=== PATIENT | male | born 1945 | race Caucasian/White ===

== ENCOUNTER 2018-04-16 10:43 | Day surgery (SDC) | payer MEDICARE, BC ==
[~2018-04-16] VITALS: Ht 177.8 cm; Wt 68.4 kg
[~2018-04-16 10:43] MED LIST: ADVIL 200MG TA200 MG PO; AVODART 0.5MG0.5 MG PO; FLOMAX; FLOMAX 0.40.4 MG/CAP PO; OMNICEF 300MG300 MG PO; PREDNISONE20 MG PO; PROBIOTIC FORMU1 CAP PO
[2018-04-16 11:23] VITALS: BP 152/62; PULSE 62; TEMP 97.3
[2018-04-16] MEDS ORDERED: PROBIOTIC FORMU1 CAP PO (11:30)
[2018-04-16] MEDS ORDERED: PROSCAR 5MG5 MG PO (11:30)
[2018-04-16] MEDS ORDERED: ALEVE 220MG220 MG PO (11:30)
[2018-04-16 14:35] VITALS: BP 126/65; PULSE 61; TEMP 98.1
[2018-04-16] MEDS ORDERED: ULTRAM 50MG TAB50 MG PO (14:49)
[2018-04-16 14:50] VITALS: BP 117/61; PULSE 63
[2018-04-16 15:05] VITALS: BP 125/64; PULSE 60
[2018-04-16 15:20] VITALS: BP 115/53; PULSE 54
[2018-04-16 15:45] VITALS: BP 137/63; PULSE 67
== END 2018-04-16 16:40 | disposition home or self-care (01) ==
LOC: SDCO 10:43
DX: K40.90 Unilateral inguinal hernia, without obstruction or gangrene, not specified as recurrent (principal); G70.00 Myasthenia gravis without (acute) exacerbation; K21.9 Gastro-esophageal reflux disease without esophagitis; Z79.899 Other long term (current) drug therapy; J44.9 Chronic obstructive pulmonary disease, unspecified; F17.210 Nicotine dependence, cigarettes, uncomplicated; M54.32 Sciatica, left side; M54.31 Sciatica, right side; N40.0 Benign prostatic hyperplasia without lower urinary tract symptoms
CPT/HCPCS: C1781; J1885; J2405; J2704; J3010; J7120

== ENCOUNTER 2018-09-15 08:46 | Emergency (ER) | payer MEDICARE, BC ==
[~2018-09-15] VITALS: Ht 177.8 cm; Wt 65.1 kg
[~2018-09-15 08:46] MED LIST changes: +ALEVE 220MG220 MG PO; +PROSCAR 5MG5 MG PO; +ULTRAM 50MG TAB50 MG PO
[2018-09-15 08:49] VITALS: TEMP 97.4
[2018-09-15 10:10] VITALS: BP 130/75; PULSE 82
== END 2018-09-15 10:10 | disposition home or self-care (01) ==
LOC: COL.ER 08:46
DX: H61.23 Impacted cerumen, bilateral (principal); F17.210 Nicotine dependence, cigarettes, uncomplicated; Z98.890 Other specified postprocedural states; Z90.89 Acquired absence of other organs

== ENCOUNTER → 2018-09-20 | Outpatient (CLI) | payer MEDICARE, BC | LOC: COL.RAD 13:31 | DX: M51.16 Intervertebral disc disorders with radiculopathy, lumbar region (principal) ==

== ENCOUNTER → 2021-06-04 | Outpatient (CLI) | payer MEDICARE, BC | LOC: COL.RAD 13:05 | DX: N28.1 Cyst of kidney, acquired (principal); N20.0 Calculus of kidney; N32.89 Other specified disorders of bladder; K80.20 Calculus of gallbladder without cholecystitis without obstruction; N40.1 Benign prostatic hyperplasia with lower urinary tract symptoms | CPT/HCPCS: Q9967 ==

== ENCOUNTER 2023-11-12 14:42 | Emergency (ER) | payer MEDICARE, BC ==
[~2023-11-12] VITALS: Ht 177.8 cm; Wt 69.5 kg
[2023-11-12 14:52] VITALS: TEMP 97.7
[2023-11-12 16:42] LABS: BASO # 0.1 K/mm3 (0.0-0.2); BASO % 0.9 % (0.0-2.0); EOS # 0.2 K/mm3 (0.0-0.7); EOS % 2.7 % (0.0-4.0); GRAN # 5.4 K/mm3 (1.4-6.5); GRAN % 61.9 % (42.2-75.2); HEMATOCRIT 46.2 % (42.0-52.0); HEMOGLOBIN 15.6 g/dl (13.5-18.0); LYMPH # 2.3 K/mm3 (1.2-3.4); LYMPH % 26.3 % (20.0-51.0); MEAN CELL VOLUME 88 fl (80.0-100.0); MEAN CORPUSCULAR HEMOGLOBIN 30 pg (27-31); MEAN CORPUSCULAR HGB CONC 34 g/dl (33.0-37.0); MEAN PLATELET VOLUME 9.7 fl (7.4-10.4); MONO # 0.7 K/mm3 (0.1-0.6); MONO % 7.5 % (1.7-9.3); PLATELET COUNT 232 K/mm3 (130-400); RED BLOOD COUNT 5.23 M/mm3 (4.20-5.60); REDCELL DISTRIBUTION WIDTH-CV 13.7 % (11.5-14.5)
[2023-11-12 16:57] LABS: ALANINE AMINOTRANSFERASE 34 U/L (0-55); ALBUMIN 3.6 g/dL (3.4-4.8); ALKALINE PHOSPHATASE 108 U/L (40-150); ANION GAP 11 mmol/L (7-16); AST,SGOT 31 U/L (5-34); BILIRUBIN,TOTAL 0.3 mg/dL (0.2-1.2); BLOOD UREA NITROGEN 18 mg/dL (8-26); CALCIUM 9.4 mg/dL (8.4-10.2); CHLORIDE 106 mEq/L (98-107); CREATININE, serum 0.88 mg/dL (0.72-1.25); GLUCOSE 103 mg/dL (70-99); POTASSIUM 4.2 mEq/L (3.5-4.5); SODIUM 140 mEq/L (136-145); TOTAL PROTEIN 7.2 g/dl (6.2-8.1)
[2023-11-12] MEDS ORDERED: Ondansetron 4 MG/2 ML VIAL IV ONE (17:00)
[2023-11-12] MEDS ORDERED: Morphine 4 MG/ML VIAL IV ONE (17:00)
[2023-11-12] MEDS ORDERED: NS 1,000 ML IV ONE (17:00)
[2023-11-12 17:07] LABS: TROPONIN-I < 0.010 ng/mL (0.00-0.033)
[2023-11-12 17:23] LABS: PH 6.5 (5.0-8.5); URINE APPEARANCE CLEAR (CLEAR/HAZY); URINE BLOOD NEGATIVE (NEGATIVE); URINE COLOR YELLOW (YELLOW); URINE GLUCOSE NEGATIVE (NEGATIVE); URINE KETONE NEGATIVE (NEGATIVE); URINE NITRATE NEGATIVE (NEGATIVE); URINE PROTEIN(semi-quant) NEGATIVE (NEGATIVE); URINE UROBILINOGEN 0.2 E.U/dL (0.2-1.0)
[2023-11-12] MEDS ORDERED: Ketorolac 15 MG/ML VIAL IV ONE (17:30)
[2023-11-12] MEDS ORDERED: NS 50 ML IV ONE (18:19)
[2023-11-12] MEDS ORDERED: Iohexol 300 - 100 ML VIAL IV ONE (18:19)
[2023-11-12 19:04] LABS: COLLECTION METHOD CLEAN CATCH
[2023-11-12] MEDS ORDERED: NORCO 325 MG-51 TAB PO (19:13)
[2023-11-12] MEDS ORDERED: Home HYDROcodone/Acetaminophen 5/325 MG #4 TABS/PACK PO ONE (19:15)
[2023-11-12 19:26] VITALS: BP 136/80; PULSE 80
== END 2023-11-12 19:26 | disposition home or self-care (01) ==
LOC: COL.ER 14:42
PROVIDERS: Nurse Practitioner
DX: R10.11 Right upper quadrant pain (principal); R10.31 Right lower quadrant pain; R16.0 Hepatomegaly, not elsewhere classified; J40 Bronchitis, not specified as acute or chronic
CPT/HCPCS: J1885; J2405; J7030; Q9967

== ENCOUNTER 2023-12-03 15:22 | Emergency (ER) | payer MEDICARE, BC ==
[~2023-12-03] VITALS: Ht 177.8 cm; Wt 68.2 kg
[~2023-12-03 15:22] MED LIST changes: +NORCO 325 MG-51 TAB PO
[2023-12-03 15:55] VITALS: TEMP 97.9
[2023-12-03] MEDS ORDERED: Ondansetron 4 MG/2 ML VIAL IV ONE (19:15)
[2023-12-03] MEDS ORDERED: HYDROmorphone 0.5 MG/0.5 ML SYRINGE IV ONE ×2 (19:15→20:15)
[2023-12-03 19:53] LABS: BASO # 0.1 K/mm3 (0.0-0.2); BASO % 0.8 % (0.0-2.0); EOS # 0.1 K/mm3 (0.0-0.7); GRAN # 6.5 K/mm3 (1.4-6.5); GRAN % 71.4 % (42.2-75.2); HEMOGLOBIN 16.4 g/dl (13.5-18.0); LYMPH # 1.7 K/mm3 (1.2-3.4); LYMPH % 18.2 % (20.0-51.0); MEAN CELL VOLUME 87 fl (80.0-100.0); MEAN CORPUSCULAR HEMOGLOBIN 30 pg (27-31); MEAN CORPUSCULAR HGB CONC 34 g/dl (33.0-37.0); MEAN PLATELET VOLUME 10.1 fl (7.4-10.4); MONO # 0.8 K/mm3 (0.1-0.6); MONO % 8.3 % (1.7-9.3); PLATELET COUNT 227 K/mm3 (130-400); RED BLOOD COUNT 5.53 M/mm3 (4.20-5.60); REDCELL DISTRIBUTION WIDTH-CV 13.7 % (11.5-14.5)
[2023-12-03] MEDS ORDERED: Home oxyCODONE/Acetaminophen 5/325 MG #4 TAB/PACK PO ONE (20:15)
[2023-12-03 20:16] LABS: ALBUMIN 3.9 g/dL (3.4-4.8); BILIRUBIN,TOTAL 0.8 mg/dL (0.2-1.2); CALCIUM 9.5 mg/dL (8.4-10.2); CREATININE, serum 0.8 mg/dL (0.72-1.25); POTASSIUM 4.4 mEq/L (3.5-4.5); TOTAL PROTEIN 8.2 g/dl (6.2-8.1)
[2023-12-03] MEDS ORDERED: PERCOCET 325 MG1 TA2 PO (20:16)
[2023-12-03] MEDS ORDERED: ZOFRAN ODT4 MG PO (20:48)
[2023-12-03 21:10] VITALS: BP 136/88; PULSE 87
== END 2023-12-03 21:10 | disposition home or self-care (01) ==
LOC: COL.ER 15:22
PROVIDERS: Physician Assistant
DX: C79.51 Secondary malignant neoplasm of bone (principal)
CPT/HCPCS: J1170; J2405

== ENCOUNTER 2023-12-06 11:26 | Inpatient (IN) | payer MEDICARE, BC ==
[~2023-12-06] VITALS: Ht 177.8 cm; Wt 63.4 kg
[~2023-12-06 11:26] MED LIST changes: +PERCOCET 325 MG1 TA2 PO; +ZOFRAN ODT4 MG PO
[2023-12-06] MEDS ORDERED: fentaNYL 25 MCG 72 HR PATCH TD ONE (12:00)
[2023-12-06 13:00] VITALS: BP_SYST 128
[2023-12-06] MEDS ORDERED: FENTANYL 25 MCG TD (13:30)
[2023-12-06] MEDS ORDERED: NORVASC 10MG10 MG PO (14:19)
[2023-12-06] MEDS ORDERED: COZAAR 25MG25 MG/TAB PO (14:19)
--- NOTE | 2023-12-06 14:34 | NUR ---
SW consulted for resources for caregiving. SW reviewed chart, spoke with MAXINE Tyler who reports patient was sent via EMS to ER for pain management. Discussed options of home health vs respite care vs admission. SW called [facility] and [facility] to inquire about possible respite care. CHELSIE quotedx $304-$330 per day respite rate with a minimum 7 day committment. [facility] quoted $414 per day. SW met with patient and son Viraj ([phone]) to discuss options for patient care. Patient experiencing severe pain with minimal movement in bed. Patient is hard of hearing but did participate in coversation. Son Viraj shared that patient lives alone in [place] , sees Dr. Mccain as his PCP and uses [facility]. Patient shared that he lives in a split level house with 7 steps up to bedroom and 7 steps down to lower level. Patient has 2 canes and a walker, grab bars in main bath. Son reports that patient is unable to use walker safely at this time due to increased pain and weakness. SW discussed options of HH and respite care. Explained respite care would be private pay. Son asked about LTC "if it comes to that" . SW discussed that can be an option and would be private pay without the qualifying hospitalization. Son and patient voiced understanding and asked for referral to [facility]. Clinical information sent via secure email. RADHA discussed patient condition with MAXINE and he called hospitalist to discuss admission for pain control. Patient to be admitted for pain control.
[2023-12-06] MEDS ORDERED: Morphine 4 MG/ML VIAL IV PRN (15:00)
[2023-12-06] MEDS ORDERED: *Potassium Replacement Protocol MC SCH (15:00)
[2023-12-06] MEDS ORDERED: Ondansetron 4 MG/2 ML VIAL IV PRN ×2 (15:00→16:15)
[2023-12-06] MEDS ORDERED: Acetaminophen 325 MG TAB PO PRN ×2 (15:00→16:15)
[2023-12-06] MEDS ORDERED: HYDROcodone/Acetaminophen 10-325 MG TAB PO PRN (15:00)
[2023-12-06] MEDS ORDERED: PROBIOTIC-MAJOR PO (15:03)
[2023-12-06 16:00] VITALS: BP 137/79; PULSE 88; TEMP 97.9
[2023-12-06] MEDS ORDERED: Morphine Oral Concentrate 20 MG/ML UD PO PRN (16:00)
[2023-12-06] MEDS ORDERED: amLODIPine 10 MG TAB PO SCH (16:04)
[2023-12-06] MEDS ORDERED: Losartan 25 MG TAB PO SCH (16:04)
[2023-12-06] MEDS ORDERED: Finasteride 5 MG TAB PO SCH (16:04)
--- NOTE | 2023-12-06 16:10 | NUR ---
PATIENT BROUGHT TO FLOOR AT 1530 FROM ED. SON WITH PATIENT. PATIENT ORIENTED TO ROOM. INTAKE ASSESSMENT COMPLETE. PATIENT EDUCATED ON ORDERING OWN MEALS. CURRENTLY IN BED. 20G PERIPHERAL IV IN L HAND THAT WAS PLACED IN THE ED. INITIAL ASSESSMENT COMPLETE. NO FURTHER NEEDS AT THIS TIME. CALL LIGHT WITHIN REACH. PATIENT IS ASSIST X2 WITH WALKER AND GAIT BELT.
[2023-12-06] MEDS ORDERED: Acetaminophen 325 MG TAB PO ONE (16:15)
[2023-12-06] MEDS ORDERED: NS 1,000 ML IV SCH (16:15)
[2023-12-06] MEDS ORDERED: Ibuprofen 200 MG TAB PO ONE (16:15)
[2023-12-06 16:38] LABS: CALCIUM 9.4 mg/dL (8.4-10.2); CREATININE, serum 0.79 mg/dL (0.72-1.25); POTASSIUM 4.2 mEq/L (3.5-4.5)
[2023-12-06 17:00] VITALS: BP_SYST 137
--- NOTE | 2023-12-06 17:07 | NUR ---
OFFERED PATIENT ADDITIONAL PAIN MEDICATIONS AND PATIENT DECLINED AT THIS TIME.
[2023-12-06 19:56] VITALS: BP 118/72; PULSE 87; TEMP 98.1
[2023-12-06 20:30] VITALS: BP_SYST 118
--- NOTE | 2023-12-06 20:40 | NUR ---
UPON SHIFT ASSESSMENT, KRISTIE WAS AXO X4 AND IN BED. HE C/O 7/10 FLANK PAIN. HE HAS A RT UPPER ARM FENTANYL PATCH IN PLACE AND TWO NURSE VERIFICATION WAS PERFORMED WITH THIS SALES TRAINING REPRESENTATIVE AND PCR.EDWARD. NS IS RUNNING IN LT HAND AT 50ML/HR. PATIENT HAS STAGE 2 ON COCCYX AND EXPERIENCES SEVERE PAIN WHEN REPOSITIONED. DISCUSSED WITH PATIENT IV MORPHINE AND PRETREATING BEFORE AMBULATING TO RESTROOM OR POSITIONAL CHANGE. PATIENT AGREEABLE. VS ARE WNL AND TELE IS CURRENTLY NS AT 90BPM.
[2023-12-06 23:38] VITALS: BP 121/78; PULSE 82; TEMP 98.4
[2023-12-07] VITALS (12 sets, daily range): BP systolic 107–128; BP diastolic 59–79; PULSE 70–84; TEMP 97.4–98.3
--- NOTE | 2023-12-07 06:15 | NUR ---
PATIENT UPSET ABOUT PAIN MANAGEMENT. REPEAT EDUCATION PROVIDED ABOUT PAIN SCALE AND PAIN ASSESSMENT, HOW TO OPERATE CALL LIGHT AND WHICH PAIN MEDS CAN BE GIVEN. (THIS INFORMATION WAS PROVIDED AT BEGINING OF SHIFT AND PAIN ASSESSMENT CONDUCTED THROUGHOUT THE NIGHT-IV MORPHINE GIVEN) PATIENT ALSO UPSET THAT WE CANNOT PROVIDE HIM WITH NAIL CLIPPERS FOR A JAGGED NAIL HE HAS ON RT RING FINGER. THIS NURSE USED BANDAGE SCISSORS AND CLIPPED FINGERNAIL-PATIENT SATISFIED. PASSED TO DAYSHIFT AND IT WAS REVEALED THAT PAIN MANAGEMENT EDUCATION PROVIDED UPON ADDMISSION WELL-CONCERNS FOR POSSIBLE MEMORY DEFICIT OR AMS VOICED. CALL LIGHT WITHIN REACH.
[2023-12-07 06:33] LABS: BASO # 0.1 K/mm3 (0.0-0.2); BASO % 0.9 % (0.0-2.0); EOS # 0.1 K/mm3 (0.0-0.7); EOS % 1.5 % (0.0-4.0); GRAN # 6.1 K/mm3 (1.4-6.5); GRAN % 68.3 % (42.2-75.2); HEMATOCRIT 42.5 % (42.0-52.0); HEMOGLOBIN 14.5 g/dl (13.5-18.0); LYMPH # 1.8 K/mm3 (1.2-3.4); LYMPH % 20.4 % (20.0-51.0); MEAN CELL VOLUME 87 fl (80.0-100.0); MEAN CORPUSCULAR HEMOGLOBIN 30 pg (27-31); MEAN CORPUSCULAR HGB CONC 34 g/dl (33.0-37.0); MEAN PLATELET VOLUME 10.3 fl (7.4-10.4); MONO # 0.8 K/mm3 (0.1-0.6); MONO % 8.5 % (1.7-9.3); PLATELET COUNT 228 K/mm3 (130-400); REDCELL DISTRIBUTION WIDTH-CV 13.7 % (11.5-14.5)
[2023-12-07 06:46] LABS: ALBUMIN 3.2 g/dL (3.4-4.8); CREATININE, serum 0.71 mg/dL (0.72-1.25); MAGNESIUM 1.7 mg/dL (1.6-2.6); PHOSPHOROUS 2.9 mg/dL (2.3-4.7); POTASSIUM 4.1 mEq/L (3.5-4.5)
--- NOTE | 2023-12-07 09:00 | NUR ---
PATIENT A&O X4. C/O PAIN BUT NO N/V AT THIS TIME. PRN PAIN MEDICATIONS GIVEN. PATIENT IS ASSIST X1 WITH WALKER AND GAIT BELT. PATIENT CURRENTLY EATING BREAKFAST. IV IN LH IS INTACT AND PATENT. IV FLUIDS RUNNING. MEPILEX TO SACRUM IS CLEAN DRY AND INTACT. LABS REVIEWED. SHIFT ASSESSMENT COMPLETE. SCHEDULED MEDICATIONS ADMINISTERED. NO FURTHER NEEDS AT THIS TIME. CALL LIGHT WITHIN REACH.
[2023-12-07] MEDS ORDERED: HYDROmorphone 0.5 MG/0.5 ML SYRINGE IV PRN (10:00)
[2023-12-07] MEDS ORDERED: Acetaminophen 325 MG TAB PO PRN (10:00)
[2023-12-07] MEDS ORDERED: Polyethylene Glycol 3350 17 GM PDS PO ONE (10:00)
--- NOTE | 2023-12-07 11:49 | NUR ---
sleeve wheel maker introduced self. Pt expressed that he was doing good and that he didn't need spiritual care. However, pt expressed in talking about his belief system. Pt mentioned that he was connected with Sufism and that his was Spiritism. interventions: sleeve wheel maker provided active listening and acknoledge what the pt believed in and discussed his saumya. Outcomes: ch. affirmed his saumya, convey a coming presence.
[2023-12-07] MEDS ORDERED: OXYCODONE 10 MG PO SCH (13:00)
[2023-12-07] MEDS ORDERED: Acetaminophen 325 MG TAB PO SCH (13:00)
--- NOTE | 2023-12-07 14:00 | NUR ---
TALKED TO DR PENA ABOUT GETTING PATIENT ON A BOWEL REGIMEN. PATIENT IS NOW ON BOWEL REGIMEN.
--- NOTE | 2023-12-07 16:36 | NUR ---
field ironworker attended clinical rounding with Dr. Grewal and was informed pt does not have his pain controlled. Medication changes were made. RADHA and Dr. Grewal both spoke with pt and his son, Viraj in room regarding discharge. They voice concerns over attending PET scan Monday at 9am. They would strongly like to go and attend this as it would help decide prognosis. Pt reports he has not even talked with the Oncologist. Dr. Grewal reports hopefully by Monday pt can discharge with his pain managed. SW was informed pt is no inpatient status. Son states he will bring in pt's DPOA-HC. They report interest in [facility] and [facility], but are open to anything so pt can attend his scan. Pt attempts to lift his shoulders and groans with pain. RADHA spoke with [facility] who has no LTC for respite care either. They report not being able to deny adoption agent benefits if he has midnights, as pt can likely not tolerate or even be skillable clinically. RADHA spoke with [facility] who is still reviewing, but has concerns regarding plan. They would not want to skill him due to PET scan Monday. They are looking into all options. RADHA spoke with Director Lindy regarding this case and insight. RADHA spoke with professor of german Mary who states pt's pain medications will need a few days to take affect. Dr. Grewal inquired if [facility] can take pt with a SLABBING MACHINE OPERATOR pump, [facility] confirms they can. RADHA called [facility] who can accept pt at home with a SLABBING MACHINE OPERATOR pump. Son, Viraj later approaches RADHA for an update. SW advised they have to take it one day at a time until pt's pain is managed to determine a discharge plan. Son states home is not accessible for a wheelchair and they have 8 stairs to enter. SW assured him they are working on it, but they are a lot of barriers affecting discharge plans/insurance rules. Son reports [facility] called him and states they could not accept him skilled. SW reiterated they will reassess the plan each day to see what pt will need upon discharge. Discharge Plan: tbd due to pain
--- NOTE | 2023-12-07 18:54 | NUR ---
PATIENT RESTING WITH EYES CLOSED IN THE APPEARANCE OF SLEEP WITH TV OFF WITH NO FAMILY PRESENT WITH NO ACUTE DISTRESS NOTED. PATIENT EASILY AROUSED. PATIENT ON ROOM AIR. NS INFUSING INTO LEFT WRIST WITH NO COMPLICATIONS NOTED. TELEMETRY INTACT. BEDSIDE SHIFT REPORT COMPLETED WITH WILY AT THIS TIME. PATIENT DENIES ANY NEEDS. BED IN LOW POSITION WITH WHEELS LOCKED WITH RAILS UP X3 AND CALL LIGHT WITHIN REACH. BED ALARM ON.
--- NOTE | 2023-12-07 21:25 | NUR ---
PATIENT RESTING IN BED SITTING UP WATCHING TV WITH NO FAMILY PRESENT WITH NO ACUTE DISTRESS NOTED. PATIENT ON ROOM AIR. NS INFUSING INTO LEFT WRIST WITH NO COMPLICATIONS NOTED. PATIENT STATES PAIN LEVEL IS 3/4 ON SCALE OF 0 TO 10. ASSESSMENT AND MEDICATION ADMINISTRATION COMPLETED AT THIS TIME. PATIENT TOLERATED WELL. PATIENT REQUESTED URINAL TO BE EMPTIED. IT WAS EMPTIED OF 200 ML OF AN YELLOW URINE. PATIENT DENIES ANY OTHER NEED. BED IN LOW POSITION WITH WHEELS LOCKED WITH RAILS UP X3 AND CALL LIGHT WITHIN REACH. BED ALARM ON.
[2023-12-08] VITALS (7 sets, daily range): BP systolic 114–137; BP diastolic 72–80; PULSE 63–83; TEMP 97.7–98.2
[2023-12-08 06:56] LABS: BASO # 0.1 K/mm3 (0.0-0.2); BASO % 0.8 % (0.0-2.0); EOS # 0.3 K/mm3 (0.0-0.7); GRAN # 5.8 K/mm3 (1.4-6.5); GRAN % 61.1 % (42.2-75.2); HEMATOCRIT 41.5 % (42.0-52.0); HEMOGLOBIN 14.4 g/dl (13.5-18.0); LYMPH # 2.4 K/mm3 (1.2-3.4); LYMPH % 25.4 % (20.0-51.0); MEAN CELL VOLUME 86 fl (80.0-100.0); MEAN CORPUSCULAR HEMOGLOBIN 30 pg (27-31); MEAN CORPUSCULAR HGB CONC 35 g/dl (33.0-37.0); MEAN PLATELET VOLUME 9.8 fl (7.4-10.4); MONO # 0.9 K/mm3 (0.1-0.6); MONO % 9.3 % (1.7-9.3); PLATELET COUNT 236 K/mm3 (130-400); RED BLOOD COUNT 4.81 M/mm3 (4.20-5.60); REDCELL DISTRIBUTION WIDTH-CV 13.8 % (11.5-14.5)
[2023-12-08 07:17] LABS: ALBUMIN 3.2 g/dL (3.4-4.8); CREATININE, serum 0.77 mg/dL (0.72-1.25); MAGNESIUM 1.7 mg/dL (1.6-2.6); PHOSPHOROUS 2.9 mg/dL (2.3-4.7); POTASSIUM 4.2 mEq/L (3.5-4.5)
--- NOTE | 2023-12-08 08:00 | NUR ---
Patient laying in bed, easily awakened with verbal command. A&Ox4. VSS. IV CDI, fluids infusing. Pain reported in back, pain medication given when requested. Fentanyl patch right arm. Urinal at the bedside. No further needs expressed. Call light within reach. Bed alarm on
[2023-12-08] MEDS ORDERED: OXYCODONE 10 MG PO PRN ×2 (09:30)
--- NOTE | 2023-12-08 13:39 | NUR ---
can worker attended clinical rounding and was informed pt's medication will be changed to help get pain under control. Pharmacist reports this will take some time to take affect. RADHA was informed by [facility] that they can accept pt under emergency admit orders. Geremias confirmed pt's pharmacy as [facility]. RADHA met with pt and son, with a female present. Pt reports his pain is a 7/10 when he attempted to adjust his shoulders up. RADHA informed them that [facility] accepted whether his pain is controlled later today vs tomorrow. This was noted as preference since pt has a PET Scan Monday at 9am outpatient. RADHA was transparent that if pt's pain is not controlled, there would be a concern surrounding discharge. Pt and son verbalized understanding. Discharge Plan: [facility] emergency admit
--- NOTE | 2023-12-08 14:08 | NUR ---
apron worker, Dr. Gerwal, Fitness Leader SHALONDA Franco, and pt's son, Viraj all met to discuss the pain update. Son and SHALONDA Gomes reports pt reports his pain as a 3/10. Son would prefer to have pt stay the night to ensure the pain regime is working and is remaining controlled to date. RN reports the K PAD is working and reccomends this. RADHA informed Geremias at [facility] of this and discharge potential for tomorrow. [facility] was agreeable to this and informed of the need to continue K PAD. Discharge Plan: [facility] tomorrow
[2023-12-08] MEDS ORDERED: Docusate Sodium 100 MG CAP PO SCH (16:22)
[2023-12-09 01:00] VITALS: BP_SYST 133
--- NOTE | 2023-12-09 02:36 | NUR ---
NURSING SHIFT ASSESSMENT COMPLETED. THE PATIENT WAS ALERT AND ORIENTED. THE PATIENT RATED HIS LOWER BACK PAIN 8/10. SCHEDULED MS CONTIN TO BE PROVIDED PER ORDERS. THE PATIENT WAS ASSISTED WITH REPOSITIONING AND THE AK PAD WAS REMOVED AT THE PTS REQUEST. FRESH WATER WAS PROVIDED. THE PATIENT REQUESTED THAT HIS MIDNIGHT VITALS NOT BE TAKEN. HE FELT LIKE THERE WERE TO MANY INTERRUPTIONS DURING HIS SLEEP TIME. THE PTS VITAL SIGNS HAD BEEN STABLE SO WE AGREED UPON DOING VITAL SIGNS WHEN LAB COMES TO DRAW EARLY IN THE MORNING. SAFETY WAS TAUGHT/REVIEWED. CALL LIGHT AND PERSONAL BELONGINGS WITHIN REACH. BED IN THE LOW POSITION, BED ALARM ON.
[2023-12-09 05:00] VITALS: BP_SYST 153
[2023-12-09 06:30] VITALS: BP 153/76; PULSE 68; TEMP 97.7
[2023-12-09 06:39] LABS: BASO # 0.1 K/mm3 (0.0-0.2); BASO % 0.9 % (0.0-2.0); EOS # 0.3 K/mm3 (0.0-0.7); EOS % 3.4 % (0.0-4.0); GRAN # 5.2 K/mm3 (1.4-6.5); GRAN % 59.9 % (42.2-75.2); HEMATOCRIT 42.8 % (42.0-52.0); HEMOGLOBIN 14.7 g/dl (13.5-18.0); LYMPH # 2.1 K/mm3 (1.2-3.4); LYMPH % 24.4 % (20.0-51.0); MEAN CELL VOLUME 86 fl (80.0-100.0); MEAN CORPUSCULAR HEMOGLOBIN 29 pg (27-31); MEAN CORPUSCULAR HGB CONC 34 g/dl (33.0-37.0); MEAN PLATELET VOLUME 9.9 fl (7.4-10.4); MONO # 0.9 K/mm3 (0.1-0.6); MONO % 10.9 % (1.7-9.3); PLATELET COUNT 229 K/mm3 (130-400); REDCELL DISTRIBUTION WIDTH-CV 13.8 % (11.5-14.5)
[2023-12-09 07:05] LABS: ALBUMIN 3.2 g/dL (3.4-4.8); CREATININE, serum 0.71 mg/dL (0.72-1.25); MAGNESIUM 1.7 mg/dL (1.6-2.6); PHOSPHOROUS 3.6 mg/dL (2.3-4.7); POTASSIUM 4.1 mEq/L (3.5-4.5)
--- NOTE | 2023-12-09 07:34 | NUR ---
DURING BEDSIDE SHIFT REPORT THE PATIENTS 25 MCG FENTANYL PATCH PLACEMENT WAS VERIFIED TO BE ON THE PATIENTS RIGHT SHOULDER. CARE TRANSFERRED TO JUSTICE Sandhu RN.
[2023-12-09 07:53] VITALS: BP 142/85; PULSE 70; TEMP 97.5
[2023-12-09] MEDS ORDERED: Polyethylene Glycol 3350 17 GM PDS PO SCH (09:00)
[2023-12-09] MEDS ORDERED: TYLENOL 325MG325 MG PO (10:07)
[2023-12-09] MEDS ORDERED: LEADER CLE17 GM/Dose PO (10:08)
[2023-12-09] MEDS ORDERED: COLACE 100100 MG/CAP PO (10:08)
[2023-12-09] MEDS ORDERED: ZOFRAN ODT4 MG PO (10:09)
--- NOTE | 2023-12-09 10:12 | NUR ---
RADHA met with Dr. Grewal and RN Stephanie. Patient stable for discharge to [facility] today. RADHA spoke with Gerem[facility] who states the orders have to state "Emergency Admit to [facility]" which was communicated to Dr. Grewal. Orders and clinicals faxed to [facility]. Patient and son updated on discharge plan and are agreeable. Transportation schedueld for 1100. RN and family notified.
[2023-12-09] MEDS ORDERED: FENTANYL 25 MCG TD (10:14)
[2023-12-09] MEDS ORDERED: MS CONTIN 115 MG/TAB PO (10:14)
[2023-12-09] MEDS ORDERED: DAZIDOX10 MG PO (10:14)
[2023-12-09] MEDS ORDERED: Ondansetron 4 MG/2 ML VIAL IV ONE (10:15)
--- NOTE | 2023-12-09 10:23 | NUR ---
PATIENT FENTANYL PATCH REMOVED AND NEW ONE PLACED. OLD FENTANYL PATCH OF 25MC WASTED, WITNESSED BY KOLBY LIZ. PATIENT IV AND TELE REMOVED FOR DISCHARGE. PATIENTS SON ASSISTING HIM TO DRESS FOR TRANSFER.
[2023-12-09] MEDS ORDERED: Lidocaine 4% Topical Patch TP ONE (10:45)
--- NOTE | 2023-12-09 10:47 | NUR ---
REPORT CALLED TO STEVEN AT [facility]. ALL QUESTIONS ANSWERED.
[2023-12-09] MEDS ORDERED: ROXICODONE 55 MG/TAB PO (10:50)
--- NOTE | 2023-12-09 10:59 | NUR ---
CALLED [facility] TO ENSURE THEY RECIEVED PATIENTS ESCRIPT FOR FENTANYL PATCH AND ARE ABLE TO FULLFILL IT TODAY. THEY ARE ABLE TO DO SO .
[2023-12-09] MEDS ORDERED: Morphine Oral Concentrate 20 MG/ML UD SL ONE (11:45)
[2023-12-09] MEDS ORDERED: fentaNYL 25 MCG 72 HR PATCH TD SCH (12:00)
--- NOTE | 2023-12-09 12:44 | NUR ---
RADHA notified by attending Dr. Grewal that patient is stable for discharge. RADHA met briefly with patient and son to discuss transfer to [facility] today via facility transport. RADHA spoke with Geremias at [facility] who instructed discharge documentation to state "emergency admission to [facility]". He then returned call and stated discharge orders are for intermediate care and prescriptions need to be sent to [facility]. Dr. Grewal contacted and make changes to orders and prescriptions. Facility transport arrived to order picker/assembler patient, patient unable to get out of bed to wheelchair due to pain. Son asking RN if other arrangements could be made for transport. RADHA met with them again to discuss that EMS transport would most likely be out of pocket, son agreeable. RADHA arranged transport via [facility] at 1230. SHALONDA Brown notified. Patient and son agreeable. Geremias at [facility] updated on transport.
--- NOTE | 2023-12-09 13:21 | NUR ---
PATIENT TAKEN VIA EMS TO [facility]. PATIENT LEFT IN STABLE CONDITION, HIS SON HAS HIS BELONGINGS.
== END 2023-12-09 12:30 | DRG 947 ==
LOC: COL.ER 11:26 → MEDICAL 14:22
PROVIDERS: ADMIT Internal Medicine
DX: G89.3 Neoplasm related pain (acute) (chronic) (principal); L89.153 Pressure ulcer of sacral region, stage 3; C22.8 Malignant neoplasm of liver, primary, unspecified as to type; C79.51 Secondary malignant neoplasm of bone; M54.9 Dorsalgia, unspecified; I10 Essential (primary) hypertension; N40.0 Benign prostatic hyperplasia without lower urinary tract symptoms; J43.9 Emphysema, unspecified; L85.9 Epidermal thickening, unspecified; K75.9 Inflammatory liver disease, unspecified; R53.81 Other malaise; F17.210 Nicotine dependence, cigarettes, uncomplicated; Z90.89 Acquired absence of other organs; Z88.1 Allergy status to other antibiotic agents; Z88.0 Allergy status to penicillin
CPT/HCPCS: G0378; J1170; J1650; J2270; J2405; J7030; Q3014